=== PATIENT | male | born 1985 | race Caucasian/White ===

== ENCOUNTER 2016-09-03 15:04 | Emergency (ER) | payer MEDICAID ==
[2016-09-03 15:05] VITALS: BMI 25.0
[2016-09-03 15:15] VITALS: BP 122/85; PULSE 87; RESP 16; TEMP 98.4; O2SAT 96
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
== END 2016-09-03 15:40 | disposition home or self-care (01) ==
LOC: C.ER 15:04
DX: K08.89 Other specified disorders of teeth and supporting structures (principal)

== ENCOUNTER 2017-02-17 06:43 | Emergency (ER) | payer MEDICAID ==
[2017-02-17 06:43] VITALS: BMI 25.0
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
--- NOTE | 2017-02-17 08:18 | RAD ---
Right elbow three views History: Injury. Posterior swelling. Findings: Bony spurring and or mild cortical irregularity at the tip of the coronoid process. This may be the sequelae of degenerative change; however, small avulsion injury cannot entirely be excluded. Clinical correlation. No significant elbow joint effusion. No evidence of dislocation. Impression: Bony spurring and or mild cortical irregularity at the tip of the coronoid process. This may be the sequelae of degenerative change; however, small avulsion injury cannot entirely be excluded. Clinical correlation. If pain persists, consider MRI.
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
--- NOTE | 2017-02-17 08:39 | CT ---
PROCEDURE: CT Cervical Spine without contrast HISTORY: Neck pain, injury COMPARISON: None available. TECHNIQUE: Axial computed tomography images were obtained of the cervical spine without the use of intravenous contrast. Coronal and sagittal reformatted images were created and reviewed. Radiation dose: Total exam DLP = 377.17 mGy-cm. This CT exam was performed using one or more of the following dose reduction techniques: Automated exposure control, adjustment of the mA and/or kV according to patient size, and/or use of iterative reconstruction technique. FINDINGS: VERTEBRAE: No fracture. Normal alignment. No destructive bony lesion. DISCS/SPINAL CANAL/NEURAL FORAMINA: No significant central canal or neural foraminal stenosis. Discs heights are grossly preserved. PARASPINAL SOFT TISSUES: Unremarkable. OTHER FINDINGS: None. IMPRESSION: No evidence of acute displaced fracture or subluxation. Mild degenerative changes.
[2017-02-17 09:29] VITALS: BP 111/70; PULSE 77; RESP 18; TEMP 98.2
[2017-02-17 09:32] VITALS: O2SAT 98
== END 2017-02-17 09:38 | disposition home or self-care (01) ==
LOC: C.ER 06:43
DX: S09.90XA Unspecified injury of head, initial encounter (principal); S13.9XXA Sprain of joints and ligaments of unspecified parts of neck, initial encounter; S50.01XA Contusion of right elbow, initial encounter; Y04.0XXA Assault by unarmed brawl or fight, initial encounter

== ENCOUNTER 2017-03-11 17:19 | Emergency (ER) | payer MEDICAID ==
[2017-03-11 17:19] VITALS: BMI 25.0
[2017-03-11 17:30] VITALS: BP 147/90; PULSE 88; RESP 16; TEMP 98.2; O2SAT 98
--- NOTE | 2017-03-11 18:01 | C.PDOC ---
History Of Present Illness 31 year old male presents to the ED brought in by EMS after being found sleeping outside. Patient has no physical complaints. He denies alcohol or drug use. Chief Complaint (Nursing): Medical Clearance History Per: Patient, EMS History/Exam Limitations: no limitations Onset/Duration Of Symptoms: Unknown Past Medical History Reviewed: Historical Data, Nursing Documentation, Vital Signs Vital Signs: Last Vital Signs Temp 98.2 F 03/11/17 17:28 Pulse 88 03/11/17 17:28 Resp 16 03/11/17 17:28 BP 147/90 03/11/17 17:28 Pulse Ox 98 03/11/17 18:03 - Medical History PMH: Asthma, Depression Denies: Chronic Kidney Disease - [facility] Procedures DETOXIFICATION SERVICES FOR SUBSTANCE ABUSE TREATMENT (09/30/15) GROUP EPOXY FABRICATION SUPERVISOR FOR SUBSTANCE ABUSE TREATMENT, PSYCHOEDUCATION (09/30/15) Family History: States: Unknown Family Hx - Social History Hx Tobacco Use: Yes Hx Alcohol Use: No Hx Substance Use: No (? pcp use) - Immunization History Hx Tetanus Toxoid Vaccination: No Hx Influenza Vaccination: No Hx Pneumococcal Vaccination: No Review Of Systems Psych: Negative for: Other (Substance use, Alcohol use) Physical Exam - Physical Exam Appears: Non-toxic, No Acute Distress Skin: Normal Color, Warm, Dry Head: Atraumatic, Normacephalic Eye(s): bilateral: Normal Inspection, PERRL, EOMI Oral Mucosa: Moist Cardiovascular: Rhythm Regular, No Murmur Respiratory: Normal Breath Sounds, No Rales, No Rhonchi, No Wheezing Extremity: No Pedal Edema, No Deformity Neurological/Psych: Oriented x3, Normal Speech ED Course And Treatment O2 Sat by Pulse Oximetry: 98 Medical Decision Making Medical Decision Making: Patient would like to leave. Exam normal. Will discharge home. Disposition - Disposition Referrals: [facility] [Outside] [facility] [Outside] Disposition: HOME/ ROUTINE Disposition Time: 17:45 Condition: GOOD Additional Instructions: Thank you for letting us take care of you today. The emergency medical care you received today was directed at your acute symptoms. If you were prescribed any medication, please fill it and take as directed. It may take several days for your symptoms to resolve. Return to the Emergency Department if your symptoms worsen, do not improve, or if you have any other problems. Please contact your doctor or call one of the physicians/clinics you have been referred to that are listed on the Patient Visit Information form that is included in your discharge packet. Bring any paperwork you were given at discharge with you along with any medications you are taking to your follow up visit. Our treatment cannot replace ongoing medical care by a primary care provider (PCP) outside of the emergency department. Thank you for allowing the [facility] team to be part of your care today. Follow up with your primary doctor or utilize our clinic for outpatient care. - Clinical Impression Clinical Impression: Medical assessment - Scribe Statement The provider has reviewed the documentation as recorded by the Kevin Carver Provider Attestation: All medical record entries made by the Kevin were at my direction and personally dictated by me. I have reviewed the chart and agree that the record accurately reflects my personal performance of the history, physical exam, medical decision making, and the department course for this patient. I have also personally directed, reviewed, and agree with the discharge instructions and disposition.
== END 2017-03-11 17:54 | disposition home or self-care (01) ==
LOC: C.ER 17:19
DX: Z04.8 Encounter for examination and observation for other specified reasons (principal)

== ENCOUNTER 2017-04-27 09:48 | Emergency (ER) | payer MEDICAID ==
[2017-04-27 09:48] VITALS: BMI 25.0
[2017-04-27 10:00] VITALS: BP 118/76; PULSE 95; RESP 18; TEMP 98.1; O2SAT 100
--- NOTE | 2017-04-27 10:06 | C.PDOC ---
Time Seen by Provider: 04/27/17 10:04 Chief Complaint (Nursing): Back Pain Past Medical History Vital Signs: Last Vital Signs Temp 98.1 F 04/27/17 09:52 Pulse 95 H 04/27/17 09:52 Resp 18 04/27/17 09:52 BP 118/76 04/27/17 09:52 Pulse Ox 100 04/27/17 09:52 - Medical History PMH: Asthma, Depression Denies: Chronic Kidney Disease - [facility] Procedures DETOXIFICATION SERVICES FOR SUBSTANCE ABUSE TREATMENT (09/30/15) GROUP LEGAL MEDIATOR FOR SUBSTANCE ABUSE TREATMENT, PSYCHOEDUCATION (09/30/15) Family History: States: Unknown Family Hx - Social History Hx Tobacco Use: Yes Hx Alcohol Use: No Hx Substance Use: No (? pcp use) - Immunization History Hx Tetanus Toxoid Vaccination: No Hx Influenza Vaccination: No Hx Pneumococcal Vaccination: No ED Course And Treatment O2 Sat by Pulse Oximetry: 100 Progress - Data Reviewed Data Reviewed: Old records Disposition - Disposition
[2017-04-27] MEDS ORDERED: Lidocaine 5% Patch TD STA (10:14)
--- NOTE | 2017-04-27 10:18 | C.PDOC ---
History Of Present Illness 31 yr old male presents to the ER with complaints of persistent pain to the right side of abdomen for the past 2-3 days. Patient reports of trip and fall onto the area while walking. States the pain is localized and worse with movement. Patient denies fever, nausea, vomiting, diarrhea, dysuria, back pain, weakness or numbness. CO PERSIST PAIN SIDE OF ABD X 2-3 DAYS. PS TRIP AND FALL ONTO AREA WHILE WALKING. PAIN LOCALIZED WORSE W MOVEMENT. NO OTHER ASSOC SX. NO PAIN MEDS TRIED EXAM NAD APPEARS COMFORTABLE HEENT ATRAUM BACK NEG ABD NEG ABD WALL ATRAUM R LATERAL NO FOCAL TEND. AROM WO DIFF. SKIN INTACT ATRAUM NEURO INTACT MDM MULT PRIOR ER VISITS FOR ETOH INTOX, TRIP AND FALLS. - HPI Time Seen by Provider: 04/27/17 10:04 Chief Complaint (Nursing): Back Pain History Per: Patient History/Exam Limitations: no limitations Onset/Duration Of Symptoms: Days (2-3) Past Medical History Reviewed: Historical Data, Nursing Documentation, Vital Signs Vital Signs: Last Vital Signs Temp 98.1 F 04/27/17 09:52 Pulse 95 H 04/27/17 09:52 Resp 18 04/27/17 09:52 BP 118/76 04/27/17 09:52 Pulse Ox 100 04/27/17 10:17 - Medical History PMH: Asthma, Depression - [facility] Procedures DETOXIFICATION SERVICES FOR SUBSTANCE ABUSE TREATMENT (09/30/15) GROUP ELECTRO PLATER FOR SUBSTANCE ABUSE TREATMENT, PSYCHOEDUCATION (09/30/15) Family History: States: No Known Family Hx - Social History Hx Tobacco Use: Yes Hx Alcohol Use: No Hx Substance Use: No (? pcp use) - Immunization History Hx Tetanus Toxoid Vaccination: No Hx Influenza Vaccination: No Hx Pneumococcal Vaccination: No Review Of Systems Except As Marked, All Systems Reviewed And Found Negative. Constitutional: Negative for: Fever Gastrointestinal: Positive for: Abdominal Pain (Pain to the right side of abdomen). Negative for: Nausea, Vomiting, Diarrhea Genitourinary: Negative for: Dysuria Musculoskeletal: Negative for: Back Pain Neurological: Negative for: Weakness, Numbness Physical Exam - Physical Exam Appears: Non-toxic, No Acute Distress, Other (Comfortable) Skin: Warm, Dry, No Rash Head: Atraumatic, Normacephalic Eye(s): bilateral: Normal Inspection, PERRL Respiratory: Normal Breath Sounds Gastrointestinal/Abdominal: Normal Exam, Soft, No Tenderness, No Guarding, No Rebound, Other (Abdomen wall atramatic right lateral, no focal tendenress.) Back: Normal Inspection, No CVA Tenderness Extremity: Normal ROM, No Swelling Neurological/Psych: Oriented x3, Normal Speech, Normal Motor ED Course And Treatment O2 Sat by Pulse Oximetry: 100 (RA) Pulse Ox Interpretation: Normal Medical Decision Making Medical Decision Making: PLAN: * Lidoderm TD * Toradol IM NOTE: * Multiple prior ER visits for ETOH intoxication, trip and Falls. Disposition Counseled Patient/Family Regarding: Diagnosis, Need For Followup - Disposition Referrals: YOUR,PMD [Other] Disposition: HOME/ ROUTINE Disposition Time: 10:17 Condition: IMPROVED Additional Instructions: TAKE MOTRIN AND/OR TYLENOL DIRECTED FOR PAIN NEEDED. REMOVE PATCH 12 HOURS AFTER INITIAL APPLICATION. Instructions: Contusion in Adults (ED) Forms: [employer] (Latvian) - Clinical Impression Clinical Impression: Abdominal wall contusion - Scribe Statement The provider has reviewed the documentation as recorded by the Scribe Silvana Guadalupe Provider Attestation: All medical record entries made by the Scribe were at my direction and personally dictated by me. I have reviewed the chart and agree that the record accurately reflects my personal performance of the history, physical exam, medical decision making, and the department course for this patient. I have also personally directed, reviewed, and agree with the discharge instructions and disposition.
[2017-04-27] MEDS ORDERED: Lidocaine 5% Patch TD ONE (10:22)
== END 2017-04-27 10:29 | disposition home or self-care (01) ==
LOC: C.ER 09:48
DX: S30.1XXA Contusion of abdominal wall, initial encounter (principal); W01.0XXA Fall on same level from slipping, tripping and stumbling without subsequent striking against object, initial encounter; Z87.891 Personal history of nicotine dependence
CPT/HCPCS: 96372; 99283; J1885

== ENCOUNTER 2017-11-09 09:09 | Emergency (ER) | payer MEDICAID, OTHER ==
[2017-11-09 09:11] VITALS: BMI 23.3
--- NOTE | 2017-11-09 10:31 | CT ---
PROCEDURE: CT HEAD WITHOUT CONTRAST. HISTORY: head injury, dizziness, head ache COMPARISON: 02/17/2017 TECHNIQUE: Axial computed tomography images were obtained through the head/brain without intravenous contrast. Radiation dose: Total exam DLP = 872.99 mGy-cm. This CT exam was performed using one or more of the following dose reduction techniques: Automated exposure control, adjustment of the mA and/or kV according to patient size, and/or use of iterative reconstruction technique. FINDINGS: HEMORRHAGE: No intracranial hemorrhage. BRAIN: No mass effect or edema. No atrophy or chronic microvascular ischemic changes. VENTRICLES: Unremarkable. No hydrocephalus. CALVARIUM: Unremarkable. PARANASAL SINUSES: Chronic ethmoid and sphenoid sinusitis MASTOID AIR CELLS: Unremarkable as visualized. No inflammatory changes. OTHER FINDINGS: None. IMPRESSION: No intracranial hemorrhage. Chronic ethmoid and sphenoid sinusitis. No change from 02/17/2017.
--- NOTE | 2017-11-09 10:45 | CT ---
PROCEDURE: CT Cervical Spine without contrast HISTORY: NECK PAIN AFTER FALL COMPARISON: None available. TECHNIQUE: Axial computed tomography images were obtained of the cervical spine without the use of intravenous contrast. Coronal and sagittal reformatted images were created and reviewed. Radiation dose: Total exam DLP = 442.79 mGy-cm. This CT exam was performed using one or more of the following dose reduction techniques: Automated exposure control, adjustment of the mA and/or kV according to patient size, and/or use of iterative reconstruction technique. FINDINGS: VERTEBRAE: The vertebral bodies are maintained in height. Normal vertebral alignment is maintained. There is straightening of the normal lordotic curvature of the cervical spine indicating possible muscular spasm. The atlantoaxial articulation and odontoid process are intact. DISCS/SPINAL CANAL/NEURAL FORAMINA: No significant central canal or neural foraminal stenosis. Discs heights are grossly preserved. PARASPINAL SOFT TISSUES: Unremarkable. OTHER FINDINGS: None. IMPRESSION: No fracture/ dislocation. Possible muscular spasm. Otherwise unremarkable.
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
--- NOTE | 2017-11-09 11:09 | RAD ---
HISTORY: HEMOPTYSIS COMPARISON: No prior. TECHNIQUE: Chest PA and lateral FINDINGS: LUNGS: No active pulmonary disease. PLEURA: No significant pleural effusion identified. No pneumothorax apparent. CARDIOVASCULAR: Normal. OSSEOUS STRUCTURES: No significant abnormalities. VISUALIZED UPPER ABDOMEN: Normal. OTHER FINDINGS: None. IMPRESSION: No active disease.
[2017-11-09 11:11] VITALS: BP 106/78; PULSE 65; RESP 20; TEMP 99
[2017-11-09 12:13] VITALS: O2SAT 98
== END 2017-11-09 11:09 | disposition home or self-care (01) ==
LOC: C.ER 09:09
DX: S09.90XA Unspecified injury of head, initial encounter (principal); S13.4XXA Sprain of ligaments of cervical spine, initial encounter; W01.0XXA Fall on same level from slipping, tripping and stumbling without subsequent striking against object, initial encounter; Z72.0 Tobacco use

== ENCOUNTER 2017-11-11 02:25 | Inpatient (IN) | payer MEDICAID ==
[2017-11-11 02:26] VITALS: BMI 23.3
[2017-11-11] MEDS ORDERED: Tetanus/Diphtheria Toxoids 0.5 ml Syringe IM ONE (03:18)
--- NOTE | 2017-11-11 04:38 | C.PDOC ---
History Of Present Illness <Kait Rodriguez - Last Filed: 11/11/17 05:03> <Genevieve Diaz - Last Filed: 11/11/17 05:55> 31 year old male is brought to the ED by EMS for evaluation of laceration to the back of his head. Patient reports he fell today sustaining a laceration to the back of his head earlier today. Patient admits to drinking some alcohol today, does not recall if he suffered LOC, currently c/o headache. Patient denies blurry vision, nausea, vomiting, weakness, numbness. (Genevieve Diaz) <Kait Rodriguez - Last Filed: 11/11/17 05:03> - HPI History Per: Patient History/Exam Limitations: no limitations Onset/Duration Of Symptoms: Hrs Injury Occurred (Timing): Just Before Arrival Location Of Injury: Posterior: Head Recent travel outside of the [place]: No Additional History Per: Patient <Genevieve Diaz - Last Filed: 11/11/17 05:55> - HPI Time Seen by Provider: 11/11/17 03:07 Chief Complaint (Nursing): Trauma Past Medical History Reviewed: Historical Data, Nursing Documentation, Vital Signs - Medical History PMH: Asthma, Depression Denies: Chronic Kidney Disease Surgical History: No Surg Hx Family History: States: Unknown Family Hx - Social History Hx Tobacco Use: Yes Hx Alcohol Use: Yes Hx Substance Use: Yes (marijuana, PCP) - Immunization History Hx Tetanus Toxoid Vaccination: No Hx Influenza Vaccination: No Hx Pneumococcal Vaccination: No <Genevieve Diaz - Last Filed: 11/11/17 05:55> Vital Signs: Last Vital Signs Temp 98.4 F 11/11/17 03:01 Pulse 71 11/11/17 05:24 Resp 20 11/11/17 05:24 BP 120/78 11/11/17 05:24 Pulse Ox 100 11/11/17 05:24 - [facility] Procedures DETOXIFICATION SERVICES FOR SUBSTANCE ABUSE TREATMENT (09/30/15) 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 Negative for: Weakness, Numbness, Dizziness <Genevieve Diaz - Last Filed: 11/11/17 05:55> Physical Exam - Physical Exam Appears: Non-toxic, No Acute Distress Skin: Normal Color, Warm, Dry Head: Normacephalic, Other (Supeficial abrasion to the occipital scalp with hematoma) Eye(s): bilateral: Normal Inspection, PERRL, EOMI Ear(s): Bilateral: Normal Nose: No Tenderness Oral Mucosa: Moist Neck: Normal ROM, No Midline Cervical Tenderness, Supple Chest: Symmetrical Cardiovascular: Rhythm Regular Respiratory: Normal Breath Sounds, No Rales, No Rhonchi, No Wheezing Gastrointestinal/Abdominal: Soft, No Tenderness, No Guarding, No Rebound Back: No Vertebral Tenderness, No Paraspinal Tenderness Extremity: Normal ROM, No Tenderness, Capillary Refill (< 2 seconds), No Swelling Extremity: Bilateral: Atraumatic Neurological/Psych: Normal Speech, Normal Motor, Normal Sensation, Other ( oriented x 2- not to time ) Gait: Unable To Assess <Genevieve Diaz - Last Filed: 11/11/17 05:55> ED Course And Treatment Pulse Ox Interpretation: Normal Progress Note: 5AM Spoke with dr morse, re: ct finding. Repeat ct scan in 6 hours. Pt is stable, arousable <Kait Rodriguez - Last Filed: 11/11/17 05:03> - Laboratory Results Result Diagrams: 11/11/17 05:09 11/11/17 05:09 O2 Sat by Pulse Oximetry: 100 (ON RA) Pulse Ox Interpretation: Normal - CT Scan/US CT head Other Rad Studies (CT/US): Read By Radiologist, Radiology Report Reviewed CT/US Interpretation: FINDINGS: Brain: Faint, acute subarachnoid hemorrhage ( SAH), anteriorly near the skull base, in the region of. the [place] of [place]. Hyperdense hemorrhage is more prominently seen on the right side. No midline shift. No mass effect. No cerebral edema. No significant white matter disease. Ventricles: Normal. No ventriculomegaly. Bones/joints: Normal. No acute fracture. Sinuses: No acute sinusitis. Paranasal sinus mucoperiosteal thickening (right maxillary sinus,. ethmoids). Mastoid air cells: Normal as visualized. No mastoid effusion. Soft tissues: Normal. IMPRESSION: Acute SAH , in the region of the [place] of [place] (more prominently seen on the right side ). Intracranial aneurysm rupture may account for these finding, eg. Clinical correlation and close follow-up are suggested. Thank you for allowing us to participate in the care of your patient. Dictated and Authenticated by: Loni Nash MD. 11/11/2017 4:32 AM Eastern Time ([place] & [place]) Progress Note: Plan: - CT head. - Tetanus immunization. - tylenol 975 mg PO. 4:40 AM- Dr Rodriguez assumend the care of the pt. <Genevieve Diaz - Last Filed: 11/11/17 05:55> Disposition <Kait Rodriguez - Last Filed: 11/11/17 05:03> - Disposition Disposition Time: 05:51 <Genevieve Diaz - Last Filed: 11/11/17 05:55> - Disposition Disposition: HOSPITALIZED Condition: GUARDED - Clinical Impression Clinical Impression: Subarachnoid hemorrhage, Scalp hematoma, Scalp abrasion Critical Care Time <Kait Rodriguez - Last Filed: 11/11/17 05:03> - PA / FIELD ASSISTANT / Resident Statement / has reviewed & agrees with the documentation as recorded. - Scribe Statement The provider has reviewed the documentation as recorded by the Scribe <Genevieve Diaz - Last Filed: 11/11/17 05:55> - Scribe Statement Jj Wright All medical record entries made by the Scribe were at my direction and personally dictated by me. I have reviewed the chart and agree that the record accurately reflects my personal performance of the history, physical exam, medical decision making, and the department course for this patient. I have also personally directed, reviewed, and agree with the discharge instructions and disposition. (Genevieve Diaz)
[2017-11-11] MEDS ORDERED: Sodium Chloride 0.9% 1,000 ML IV ONE (04:51)
[2017-11-11 05:12] LABS: BASO # 0.1 K/uL (0.0-0.2); BASO % 0.3 % (0.0-2.0); EOS # 0.1 K/uL (0.0-0.7); EOS % 0.4 % (0.0-4.0); HEMOGLOBIN 13.8 g/dL (12.0-18.0); LYMPH # 0.9 K/uL (1.0-4.3); LYMPH % 6.4 % (20.0-40.0); MEAN CELL VOLUME 93.2 fL (80.0-94.0); MEAN CORPUSCULAR HEMOGLOBIN 31.4 pg (27.0-31.0); MEAN CORPUSCULAR HGB CONC 33.7 g/dL (33.0-37.0); MEAN PLATELET VOLUME 8.6 fL (7.2-11.7); MONO # 0.5 K/uL (0.0-0.8); MONO % 3.4 % (0.0-10.0); NEUT # 13.1 K/uL (1.8-7.0); NEUT % 89.5 % (50.0-75.0); PLATELET COUNT 160 K/uL (130-400); RED CELL DISTRIBUTION WIDTH 12.9 % (11.5-14.5); WHITE BLOOD COUNT 14.6 K/uL (4.8-10.8)
[2017-11-11 05:24] LABS: ALB/GLOB RATIO 1.5 (1.0-2.1); ALBUMIN 4.5 g/dL (3.5-5.0); ALT/SGPT 44 U/L (21-72); AST/SGOT 45 U/L (17-59); BLOOD UREA NITROGEN 22 mg/dL (9-20); CALCIUM 9.1 mg/dl (8.6-10.4); GFR AFRICAN-AMERICAN > 60; GFR NON-AFRICAN AMERICAN > 60
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
[2017-11-11 05:58] LABS: BANDS 1 % (0-2); EOSINOPHIL 1 % (0-4); LYMPHOCYTE 5 % (20-40); MONOCYTE 4 % (0-10); NEUTROPHIL 89 % (50-75); TOTAL CELLS COUNTED 100
[2017-11-11 05:59] LABS: PLATELET ESTIMATE NORMAL (NORMAL)
[2017-11-11] MEDS: Sodium Chloride 0.9% 1,000 ML IV SCH ×2 (06:45→20:50)
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
--- NOTE | 2017-11-11 09:32 | RAD ---
PROCEDURE: CHEST RADIOGRAPH, 1 VIEW HISTORY: fall COMPARISON: 11/09/2017 FINDINGS: LUNGS: Clear. PLEURA: No pneumothorax or pleural fluid seen. CARDIOVASCULAR: Normal. OSSEOUS STRUCTURES: No significant abnormalities. VISUALIZED UPPER ABDOMEN: Normal. OTHER FINDINGS: None. IMPRESSION: No active disease. No acute/significant interval changes.
--- NOTE | 2017-11-11 10:14 | CP.PCM.CON ---
History of Present Illness - History of Present Illness History of Present Illness: dictated min TSAH R temp region GCS 15 clear for DC if 2nd CT unchanged Past Patient History - Infectious Disease Hx of Infectious Diseases: None - Past Social History Smoking Status: Light Smoker < 10 Cigarettes Daily - PULMONARY Hx Asthma: Yes - NEUROLOGICAL Hx Neurological Disorder: No - HEENT Hx HEENT Problems: No - RENAL Hx Chronic Kidney Disease: No - ENDOCRINE/METABOLIC Hx Endocrine Disorders: No - HEMATOLOGICAL/ONCOLOGICAL Hx Blood Disorders: No - INTEGUMENTARY Hx Dermatological Problems: No - MUSCULOSKELETAL/RHEUMATOLOGICAL Hx Musculoskeletal Disorders: No - GASTROINTESTINAL Hx Gastrointestinal Disorders: No - GENITOURINARY/GYNECOLOGICAL Hx Genitourinary Disorders: No - PSYCHIATRIC Hx Depression: Yes Hx Substance Use: Yes (marijuana, PCP) - SURGICAL HISTORY Hx Surgeries: No - ANESTHESIA Hx Anesthesia: No Hx Anesthesia Reactions: No Meds Allergies/Adverse Reactions: Allergies Allergy/AdvReac Type Severity Reaction Status Date / Time No Known Allergies Allergy Verified 11/11/17 03:06 - Medications Medications: Current Medications Sodium Chloride (Sodium Chloride 0.9%) 1,000 mls @ 75 mls/hr IV .[id number] [facility] Last Admin: 11/11/17 06:45 Dose: 75 mls/hr Levetiracetam 500 mg/ Dextrose 105 mls @ 420 mls/hr IVPB Q12H [facility] Last Admin: 11/11/17 06:45 Dose: 420 mls/hr Acetaminophen (Ofirmev) 100 mls @ 100 mls/hr IV ONCE ONE Stop: 11/11/17 10:28 Ondansetron HCl (Zofran Inj) 4 mg IVP Q6H PRN PRN Reason: Nausea/Vomiting Pantoprazole Sodium (Protonix Inj) 40 mg IVP DAILY [facility] Results - Vital Signs Recent Vital Signs: Last Vital Signs Temp 98.0 F 11/11/17 05:55 Pulse 76 11/11/17 07:00 Resp 16 11/11/17 07:00 BP 110/70 11/11/17 07:00 Pulse Ox 99 11/11/17 07:00 - Labs Result Diagrams: 11/11/17 05:09 11/11/17 05:09 Labs: Laboratory Results - last 24 hr 11/11/17 11/11/17 11/11/17 05:09 05:09 05:28 WBC 14.6 H D RBC 4.40 Hgb 13.8 Hct 41.0 MCV 93.2 MCH 31.4 H MCHC 33.7 RDW 12.9 Plt Count 160 MPV 8.6 Neut % (Auto) 89.5 H Lymph % (Auto) 6.4 L [place] % (Auto) 3.4 Eos % (Auto) 0.4 Baso % (Auto) 0.3 Neut # (Auto) 13.1 H Lymph # (Auto) 0.9 L [place] # (Auto) 0.5 Eos # (Auto) 0.1 Baso # (Auto) 0.1 Neutrophils % (Manual) 89 H Band Neutrophils % 1 Lymphocytes % (Manual) 5 L Monocytes % (Manual) 4 Eosinophils % (Manual) 1 Platelet Estimate Normal Sodium 144 Potassium 3.8 Chloride 103 Carbon Dioxide 29 Anion Gap 16 BUN 22 H Creatinine 0.9 Est GFR ( Amer) > 60 Est GFR (Non-Af Amer) > 60 Random Glucose 97 Serum Osmolality Calcium 9.1 Total Bilirubin 0.5 AST 45 ALT 44 Alkaline Phosphatase 75 Total Protein 7.5 Albumin 4.5 Globulin 3.0 Albumin/Globulin Ratio 1.5 Alcohol, Quantitative < 10 Blood Type O POSITIVE Antibody Screen Negative 11/11/17 07:30 WBC RBC Hgb Hct MCV MCH MCHC RDW Plt Count MPV Neut % (Auto) Lymph % (Auto) [place] % (Auto) Eos % (Auto) Baso % (Auto) Neut # (Auto) Lymph # (Auto) [place] # (Auto) Eos # (Auto) Baso # (Auto) Neutrophils % (Manual) Band Neutrophils % Lymphocytes % (Manual) Monocytes % (Manual) Eosinophils % (Manual) Platelet Estimate Sodium Potassium Chloride Carbon Dioxide Anion Gap BUN Creatinine Est GFR ( Amer) Est GFR (Non-Af Amer) Random Glucose Serum Osmolality 292 Calcium Total Bilirubin AST ALT Alkaline Phosphatase Total Protein Albumin Globulin Albumin/Globulin Ratio Alcohol, Quantitative Blood Type Antibody Screen
[2017-11-11 10:51] LABS: INR 1.1; PROTHROMBIN TIME 12.3 SECONDS (9.7-12.2)
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
[2017-11-11 11:23] LABS: URINE BILIRUBIN NEGATIVE (NEGATIVE); URINE BLOOD NEGATIVE (NEGATIVE); URINE CLARITY Clear (Clear); URINE COLOR Straw (YELLOW); URINE GLUCOSE (UA) NORMAL (Normal); URINE LEUKOCYTE ESTERASE NEG Leu/uL (Negative); URINE PROTEIN NEGATIVE (NEGATIVE); URINE UROBILINOGEN NORMAL mg/dL (0.2-1.0)
[2017-11-11 11:24] LABS: BARBITURATES, UR NEGATIVE (NEGATIVE); BENZODIAZEPINES, UR NEGATIVE (NEGATIVE); OPIATES, UR NEGATIVE (NEGATIVE)
[2017-11-11 11:48] LABS: PHENCYCLIDINE, UR POSITIVE (NEGATIVE)
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
[2017-11-12 05:50] LABS: BASO % 0.3 % (0.0-2.0); EOS # 0.1 K/uL (0.0-0.7); EOS % 1.4 % (0.0-4.0); HEMOGLOBIN 12.8 g/dL (12.0-18.0); LYMPH # 1.1 K/uL (1.0-4.3); LYMPH % 13.4 % (20.0-40.0); MEAN CELL VOLUME 92.9 fL (80.0-94.0); MEAN CORPUSCULAR HEMOGLOBIN 32.4 pg (27.0-31.0); MEAN CORPUSCULAR HGB CONC 34.9 g/dL (33.0-37.0); MEAN PLATELET VOLUME 9.1 fL (7.2-11.7); MONO # 0.6 K/uL (0.0-0.8); MONO % 6.9 % (0.0-10.0); NEUT # 6.2 K/uL (1.8-7.0); RBC 3.94 Mil/uL (4.40-5.90); RED CELL DISTRIBUTION WIDTH 12.8 % (11.5-14.5)
[2017-11-12 06:35] LABS: ALB/GLOB RATIO 1.4 (1.0-2.1); ALBUMIN 3.7 g/dL (3.5-5.0); ALT/SGPT 41 U/L (21-72); AST/SGOT 40 U/L (17-59); BLOOD UREA NITROGEN 10 mg/dL (9-20); CALCIUM 8.5 mg/dl (8.6-10.4); GFR AFRICAN-AMERICAN > 60; GFR NON-AFRICAN AMERICAN > 60
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
[2017-11-12] MEDS: Pantoprazole 40 mg EC Tab PO SCH (09:52)
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
[2017-11-12] MEDS: Acetaminophen-Codeine 300/30 mg Tab PO PRN ×2 (16:19→21:55)
[2017-11-12] MEDS ORDERED: Gadodiamide 287 MG/ML VIAL (15ML) IV ONE (18:10)
--- NOTE | 2017-11-12 18:40 | MRI ---
PROCEDURE: MRI BRAIN WITH AND WITHOUT CONTRAST HISTORY: AMS; ? bleed edema COMPARISON: Comparison made with prior CT scan brain dated 11/12/2017. TECHNIQUE: Multiplanar, multisequence MR images of the brain were obtained with and without intravenous contrast enhancement. FINDINGS: HEMORRHAGE: Small hemorrhagic contusion is again seen in the mid right anterior temporal lobe which is associated with a small rim of surrounding edema. No additional hemorrhages are identified. No evidence of hemosiderin deposition identified on gradient echo weighted sequence. DWI: No evidence of an acute or early subacute infarction seen on diffusion imaging. BRAIN PARENCHYMA: There are at least 2 tiny nonenhancing nonspecific focal areas of increased T2 signal seen in the left periventricular and left on subcortical white matter posterior frontal lobe best seen on axial FLAIR sequence in series 5, image number 9. Foci could represent sequela of trauma however other etiologies including tiny chronic lacunar type infarcts,, migraine headache postinfectious of the/inflammatory etiologies to be excluded. ENHANCEMENT: No enhancing parenchymal nor extra-axial masses or collections. No evidence of unusual meningeal enhancement. VENTRICLES: No obstructive hydrocephalus. CRANIUM: Calvarium intact. Note made of localized susceptibility artifact (related to a skin closure fide) seen overlying a small focal scalp contusion left posterior parieto-occipital calvarium region. . ORBITS: Orbits and contents unremarkable. PARANASAL SINUSES/MASTOIDS: Clear VASCULAR SYSTEM: Visualized major vascular flow voids at skull base patent. OTHER FINDINGS: None . IMPRESSION: Small hemorrhagic contusion of left anterior temporal region surrounded by small amount of prolonged T2 signal edema. . . There are at least 2 tiny focal areas of nonspecific nonenhancing foci of increased T2 signal periventricular and subcortical white matter left posterior frontal region just above the level of the ventricles which are of uncertain etiology though could represent posttraumatic sequela. See above discussion for additional differential diagnostic considerations. No enhancing masses. The small left occipito parietal scalp contusion on with in situ skin closure fide.
[2017-11-13] MEDS: Acetaminophen-Codeine 300/30 mg Tab PO PRN ×2 (05:11→11:20)
[2017-11-13 06:32] LABS: BASO % 0.6 % (0.0-2.0); EOS # 0.1 K/uL (0.0-0.7); HEMOGLOBIN 12.9 g/dL (12.0-18.0); LYMPH # 1.9 K/uL (1.0-4.3); LYMPH % 28.2 % (20.0-40.0); MEAN CORPUSCULAR HEMOGLOBIN 31.8 pg (27.0-31.0); MEAN CORPUSCULAR HGB CONC 34.2 g/dL (33.0-37.0); MEAN PLATELET VOLUME 9.1 fL (7.2-11.7); MONO # 0.6 K/uL (0.0-0.8); MONO % 8.3 % (0.0-10.0); NEUT # 4.1 K/uL (1.8-7.0); NEUT % 60.9 % (50.0-75.0); NRBC % 0.1 % (0.0-2.0); RBC 4.06 Mil/uL (4.40-5.90); RED CELL DISTRIBUTION WIDTH 12.9 % (11.5-14.5); WHITE BLOOD COUNT 6.7 K/uL (4.8-10.8)
[2017-11-13 06:41] LABS: ALB/GLOB RATIO 1.3 (1.0-2.1); ALBUMIN 3.7 g/dL (3.5-5.0); ALT/SGPT 49 U/L (21-72); AST/SGOT 40 U/L (17-59); BLOOD UREA NITROGEN 10 mg/dL (9-20); CALCIUM 8.7 mg/dl (8.6-10.4); GFR AFRICAN-AMERICAN > 60; GFR NON-AFRICAN AMERICAN > 60
[2017-11-13 07:14] LABS: OXYCODONE SCREEN negative
[2017-11-13] MEDS ORDERED: Pneumococcal 23-Valent Vaccine IM ONE (10:00)
[2017-11-13] MEDS: Pantoprazole 40 mg EC Tab PO SCH (10:08)
[2017-11-13 12:29] VITALS: TEMP 98
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
[2017-11-13 14:57] VITALS: BP 102/60; PULSE 72; RESP 17; O2SAT 98
== END 2017-11-13 14:50 | disposition home or self-care (01) | DRG 766 ==
LOC: C.ER 02:25 → C.6T 05:26 → C.9E 06:48 → C.9I 07:00 → OBSVTOIN 07:37
PROVIDERS: ADMIT Hospitalist; ATTEND Hospitalist
PROC: 0HQ0XZZ Repair Scalp Skin, External Approach (ICD-10-PCS; principal; 2017-11-11)
DX: S06.6X0A Traumatic subarachnoid hemorrhage without loss of consciousness, initial encounter (principal); S01.01XA Laceration without foreign body of scalp, initial encounter; F16.10 Hallucinogen abuse, uncomplicated; F07.81 Postconcussional syndrome; F12.20 Cannabis dependence, uncomplicated; F10.10 Alcohol abuse, uncomplicated; D72.829 Elevated white blood cell count, unspecified; F39 Unspecified mood [affective] disorder; F41.9 Anxiety disorder, unspecified; J45.909 Unspecified asthma, uncomplicated; G89.29 Other chronic pain; F17.210 Nicotine dependence, cigarettes, uncomplicated; Y08.89XA Assault by other specified means, initial encounter; Y92.89 Other specified places as the place of occurrence of the external cause; W01.0XXA Fall on same level from slipping, tripping and stumbling without subsequent striking against object, initial encounter